=== PATIENT | female | born 1960 | race Two or more races ===

== ENCOUNTER → 2017-07-25 | Outpatient (CLI) | payer BC | END | disposition home or self-care (01) | LOC: HKI 14:19 | DX: S32.591D Other specified fracture of right pubis, subsequent encounter for fracture with routine healing (principal); W19.XXXD Unspecified fall, subsequent encounter; E78.00 Pure hypercholesterolemia, unspecified; K21.9 Gastro-esophageal reflux disease without esophagitis; Z90.710 Acquired absence of both cervix and uterus; Z87.891 Personal history of nicotine dependence; Z85.42 Personal history of malignant neoplasm of other parts of uterus | CPT/HCPCS: 73502 ==

== ENCOUNTER → 2017-08-01 | Outpatient (CLI) | payer BC ==
[2017-08-01 10:02] LABS: ADD MAN DIFF? NO
[2017-08-01 10:07] LABS: BASOPHIL # 0.1 10^3/ul (0.0-0.1); EOSINOPHILS # 0.2 10^3/ul (0.0-0.5); EOSINOPHILS % 2.8 % (0.0-7.0); HEMATOCRIT 40.2 % (37.0-47.0); HEMOGLOBIN 13.4 g/dl (12.0-16.0); LYMPHOCYTES # 2.3 10^3/ul (0.8-2.9); LYMPHOCYTES % 31.3 % (15.0-51.0); MEAN CORPUSCULAR HGB CONC 33.3 g/dl (32.0-37.0); MEAN PLATELET VOLUME 11.3 fl (7.4-10.4); MONOCYTE # 0.5 10^3/ul (0.3-0.9); MONOCYTES % 6.6 % (0.0-11.0); NEUTROPHIL # 4.2 10^3/ul (1.6-7.5); PLATELET COUNT 222 10^3/UL (140-415); RED BLOOD COUNT 4.62 10^6/ul (4.20-5.40)
[2017-08-01 10:07] LABS: WHITE BLOOD COUNT 7.3 10^3/ul (4.8-10.8)
[2017-08-01 10:30] LABS: ALANINE AMINOTRANSFERASE 49 IU/L (13-69); ALBUMIN 4.6 g/dl (3.3-4.9); ALBUMIN/GLOBULIN RATIO 1.27; ALKALINE PHOSPHATASE 95 IU/L (42-121); ANION GAP 15 (8-16); ASPARTATE AMINO TRANSFERASE 24 IU/L (15-46); BILIRUBIN,INDIRECT 0.3 mg/dl (0-1.1); BILIRUBIN,TOTAL 0.3 mg/dl (0.2-1.3); BLOOD UREA NITROGEN 18 mg/dl (7-20); CALCIUM 10.5 mg/dl (8.4-10.2); CARBON DIOXIDE 29 mmol/L (21-31); CHLORIDE 103 mmol/L (97-110); CREATININE 0.69 mg/dl (0.44-1.00); GLUCOSE 107 mg/dl (70-220); POTASSIUM 4.9 mmol/L (3.5-5.1); SODIUM 142 mmol/L (135-144); TOTAL PROTEIN 8.2 g/dl (6.1-8.1)
== END | disposition home or self-care (01) ==
LOC: LAB 09:40
DX: E55.9 Vitamin D deficiency, unspecified (principal); D64.9 Anemia, unspecified
CPT/HCPCS: 80053; 82306; 85025

== ENCOUNTER → 2017-08-25 | Outpatient (CLI) | payer BC ==
[2017-08-29 14:27] LABS: NIL 0.03 IU/mL; QUANTIFERON(R)-TB GOLD POSITIVE (NEGATIVE); TB-NIL 0.38 IU/mL
== END | disposition home or self-care (01) ==
LOC: LAB 11:48
DX: Z20.1 Contact with and (suspected) exposure to tuberculosis (principal)
CPT/HCPCS: 86480

== ENCOUNTER 2018-05-17 16:14 | Emergency (ER) | payer BC ==
[2018-05-17] MEDS: KETOROLAC 60 MG INJ IM (16:44)
== END 2018-05-17 19:01 | disposition home or self-care (01) ==
LOC: FTE 16:14
DX: S52.92XA Unspecified fracture of left forearm, initial encounter for closed fracture (principal); I10 Essential (primary) hypertension; W01.0XXA Fall on same level from slipping, tripping and stumbling without subsequent striking against object, initial encounter; Y92.89 Other specified places as the place of occurrence of the external cause
CPT/HCPCS: 29125; 73090; 73110-LT; 73130-LT; 96372; 99284-25

== ENCOUNTER → 2018-05-18 | Outpatient (CLI) | payer BC | END | disposition home or self-care (01) | LOC: C/S 16:46 | DX: S52.92XA Unspecified fracture of left forearm, initial encounter for closed fracture (principal); S52.612A Displaced fracture of left ulna styloid process, initial encounter for closed fracture; X58.XXXA Exposure to other specified factors, initial encounter; Y92.89 Other specified places as the place of occurrence of the external cause | CPT/HCPCS: 73200 ==

== ENCOUNTER 2018-05-21 15:06 | Inpatient (IN) | payer BC ==
[2018-05-21] MEDS ORDERED: ACETAMINOPHEN 325 MG TAB PO ×2 (16:00→19:30)
[2018-05-21] MEDS ORDERED: ONDANSETRON 4 MG INJ IV ×2 (16:00→19:30)
[2018-05-21 16:26] LABS: ADD MAN DIFF? NO
[2018-05-21 16:28] LABS: WHITE BLOOD COUNT 7.8 10^3/ul (4.8-10.8)
[2018-05-21 16:28] LABS: BASOPHIL # 0.1 10^3/ul (0.0-0.1); BASOPHILS % 0.6 % (0.0-2.0); EOSINOPHILS # 0.1 10^3/ul (0.0-0.5); EOSINOPHILS % 0.9 % (0.0-7.0); LYMPHOCYTES # 2.3 10^3/ul (0.8-2.9); LYMPHOCYTES % 29.4 % (15.0-51.0); MEAN CORPUSCULAR HEMOGLOBIN 29.1 pg (29.0-33.0); MEAN CORPUSCULAR HGB CONC 32.4 g/dl (32.0-37.0); MEAN CORPUSCULAR VOLUME 89.6 fl (82.0-101.0); MEAN PLATELET VOLUME 11.1 fl (7.4-10.4); MONOCYTE # 0.6 10^3/ul (0.3-0.9); MONOCYTES % 8.2 % (0.0-11.0); NEUTROPHIL # 4.7 10^3/ul (1.6-7.5); NEUTROPHILS % 60.6 % (39.0-77.0); PLATELET COUNT 185 10^3/UL (140-415); RED BLOOD COUNT 4.13 10^6/ul (4.20-5.40); RED CELL DISTRIBUTION WIDTH 12.9 % (11.5-14.5)
[2018-05-21] MEDS: SOD CHLORIDE 0.9% 1,000 ML IV ×2 (16:28→20:52)
[2018-05-21] MEDS: ONDANSETRON 4 MG INJ IV (16:28)
[2018-05-21 16:42] LABS: INR 0.94; PROTIME 12.7 Sec (11.9-14.9)
[2018-05-21 16:43] LABS: PARTIAL THROMBOPLASTIN TIME 35.8 Sec (23.0-35.0)
[2018-05-21 16:44] LABS: ANION GAP 7 (5-13); BLOOD UREA NITROGEN 13 mg/dl (7-20); CALCIUM 9.4 mg/dl (8.4-10.2); CARBON DIOXIDE 27 mmol/L (21-31); CHLORIDE 105 mmol/L (97-110); CREATININE 0.63 mg/dl (0.44-1.00); Estimated GFR > 60 mL/min (>60); GLUCOSE 99 mg/dl (70-220); POTASSIUM 4.8 mmol/L (3.5-5.1); SODIUM 139 mmol/L (135-144)
[2018-05-21 17:00] LABS: ADD UMIC YES; UR ASCORBIC ACID 40 mg/dL (NEGATIVE); UR BILIRUBIN (Dip) NEGATIVE (NEGATIVE); UR BLOOD (Dip) NEGATIVE (NEGATIVE); UR CLARITY SLIGHTLY CLOUDY (CLEAR); UR COLOR AMBER (YELLOW); UR GLUCOSE (Dip) NEGATIVE (NEGATIVE); UR KETONES (Dip) TRACE mg/dL (NEGATIVE); UR LEUKOCYTE ESTERASE (Dip) 1+ Leu/ul (NEGATIVE); UR MUCUS MANY /HPF (NONE SEEN); UR NITRITE (Dip) NEGATIVE (NEGATIVE); UR RBC 5 /HPF (0-5); UR SPECIFIC GRAVITY (Dip) 1.026 (1.003-1.030); UR SQUAMOUS EPITHELIAL CELL FEW /HPF (FEW); UR TOTAL PROTEIN (Dip) 1+ mg/dl (NEGATIVE); UR UROBILINOGEN (Dip) 2+ mg/dL (NEGATIVE); UR WBC 25 /HPF (0-5)
[2018-05-21] MEDS: KETOROLAC 30 MG INJ IV (17:21)
[2018-05-21] MEDS ORDERED: NACL 0.9% 3 ML SYG IV (19:30)
[2018-05-21] MEDS ORDERED: DOCUSATE SODIUM 100 MG CAP PO (19:30)
[2018-05-21] MEDS: CEFTRIAXONE 1 GM/50 ML (PMX) 50 ML IVPB (21:20)
[2018-05-21] MEDS: ATORVASTATIN 40 MG TAB PO (21:20)
[2018-05-21] MEDS: ESCITALOPRAM 10 MG TAB PO (21:20)
[2018-05-21] MEDS: HYDROCODONE/APAP (5/325) TAB PO (22:46)
[2018-05-22] MEDS: HYDROCODONE/APAP (5/325) TAB PO (04:41)
[2018-05-22] MEDS: PANTOPRAZOLE (EC) 40 MG TAB PO (05:54)
[2018-05-22] MEDS: ESCITALOPRAM 10 MG TAB PO (07:56)
[2018-05-22] MEDS: morphine 2 MG INJ IV (10:12)
[2018-05-22] MEDS ORDERED: LABETALOL HCL 20MG INJ IV (13:00)
[2018-05-22] MEDS ORDERED: MEPERIDINE 25 MG INJ IV (13:00)
[2018-05-22] MEDS ORDERED: HYDROmorphONE 1 MG/5 ML IV SYRINGE IV ×3 (13:00)
[2018-05-22] MEDS ORDERED: hydrALAzine 20 MG INJ IV (13:00)
[2018-05-22] MEDS ORDERED: DIPHENHYDRAMINE 50 MG INJ IV (13:00)
[2018-05-22] MEDS ORDERED: ONDANSETRON 4 MG INJ IV (13:00)
[2018-05-22] MEDS ORDERED: PROPOFOL 20 ML (13:02)
[2018-05-22] MEDS ORDERED: CEFAZOLIN 1 GM INJ (13:02)
[2018-05-22] MEDS ORDERED: ONDANSETRON 4 MG INJ (13:03)
[2018-05-22] MEDS ORDERED: ROPIVACAINE 0.2% 20 ML VIAL (13:03)
[2018-05-22] MEDS ORDERED: MIDAZOLAM 1 MG/ML 2 ML INJ (13:03)
[2018-05-22] MEDS ORDERED: METOCLOPRAMIDE 10 MG INJ (13:03)
[2018-05-22] MEDS ORDERED: FENTAnyl 50 MCG/ML VIAL (13:23)
[2018-05-22] MEDS ORDERED: SOD CHLORIDE 0.9% 1,000 ML IV (14:21)
[2018-05-22] MEDS ORDERED: HYDROCODONE/APAP (5/325) TAB PO (14:30)
== END 2018-05-22 16:45 | disposition home or self-care (01) | DRG 563 ==
LOC: FTE 15:06 → PP2 15:53 → MS1 18:50
PROC: 0PSJXZZ Reposition Left Radius, External Approach (ICD-10-PCS; principal; 2018-05-22 13:19)
DX: S52.572A Other intraarticular fracture of lower end of left radius, initial encounter for closed fracture (principal); N39.0 Urinary tract infection, site not specified; E78.5 Hyperlipidemia, unspecified; Z85.89 Personal history of malignant neoplasm of other organs and systems; M85.80 Other specified disorders of bone density and structure, unspecified site; W18.30XA Fall on same level, unspecified, initial encounter
CPT/HCPCS: 71045; 73100; 80048; 81001; 84703; 85025; 85610; 85730; 87086; 93005; 99285-25

== ENCOUNTER 2019-01-24 09:23 | Emergency (ER) | payer BC ==
[2019-01-24] MEDS: ALBUTEROL HFA 8 GM INHALER INH (10:05)
[2019-01-24] MEDS: PROMETHAZINE/DM (CUP) PO (10:07)
[2019-01-24] MEDS ORDERED: ALBUTEROL HFA 8 GM INHALER INH (13:00)
== END 2019-01-24 11:54 | disposition home or self-care (01) ==
LOC: FTE 09:23
DX: J40 Bronchitis, not specified as acute or chronic (principal); J18.9 Pneumonia, unspecified organism; Z85.42 Personal history of malignant neoplasm of other parts of uterus; Z91.040 Latex allergy status
CPT/HCPCS: 71045; 99283-25

== ENCOUNTER → 2019-01-28 | Outpatient (CLI) | payer BC | END | disposition home or self-care (01) | LOC: RAD 15:30 | DX: J18.9 Pneumonia, unspecified organism (principal) | CPT/HCPCS: 71046 ==

== ENCOUNTER → 2019-02-04 | Outpatient (CLI) | payer BC | END | disposition home or self-care (01) | LOC: RAD 12:02 | DX: J18.9 Pneumonia, unspecified organism (principal) | CPT/HCPCS: 71046 ==

== ENCOUNTER → 2019-02-14 | Outpatient (CLI) | payer BC | END | disposition home or self-care (01) | LOC: RAD 10:49 | DX: J18.9 Pneumonia, unspecified organism (principal) | CPT/HCPCS: 71046; 71100 ==

== ENCOUNTER → 2019-02-22 | Outpatient (CLI) | payer BC | END | disposition home or self-care (01) | LOC: C/S 08:55 | DX: S22.41XA Multiple fractures of ribs, right side, initial encounter for closed fracture (principal); X58.XXXA Exposure to other specified factors, initial encounter; Y92.89 Other specified places as the place of occurrence of the external cause; J98.11 Atelectasis; K44.9 Diaphragmatic hernia without obstruction or gangrene; J18.9 Pneumonia, unspecified organism | CPT/HCPCS: 71250 ==